=== PATIENT | female | born 1955 | race Caucasian/White ===

== ENCOUNTER → 2018-04-12 | Outpatient (CLI) | payer MEDICARE, BC ==
[~2018-04-12] MED LIST: ATEN50; LEVO-T112 MCG
== END ==
LOC: LAB 12:02 → LAB SHORT 12:02
DX: I83.028 Varicose veins of left lower extremity with ulcer other part of lower leg (principal); I87.2 Venous insufficiency (chronic) (peripheral); L90.5 Scar conditions and fibrosis of skin; D22.39 Melanocytic nevi of other parts of face; S50.912A Unspecified superficial injury of left forearm, initial encounter; I83.93 Asymptomatic varicose veins of bilateral lower extremities
CPT/HCPCS: 87070; 87075; 87186; 87205

== ENCOUNTER 2018-05-31 15:24 | Inpatient (IN) | payer MEDICARE, BC ==
[~2018-05-31] VITALS: Ht 172.7 cm; Wt 130.8 kg
[~2018-05-31 15:24] MED LIST changes: -LEVO-T112 MCG; +LEVO-T112 MCG PO
[2018-05-31 16:32] LABS: Alanine Aminotransfer (ALT/SGP 29 U/L (12-78); Albumin, Blood 3.6 g/dL (3.4-5.0); Albumin/Globulin Ratio 1.2 (0.8-1.8); Alk Phos 75 U/L (50-136); Anion Gap 6 mmol/L (6-16); Aspartate Aminotrans (AST/SGOT 31 U/L (12-37); Bilirubin, Total 0.3 mg/dL (0.1-1.0); Blood Urea Nitrogen 9 mg/dL (8-24); Bun/Creatinine Ratio 9.3 (12.0-20.0); CO2, Blood 29 mmol/L (21-32); Calcium, Blood 8.5 mg/dL (8.5-10.1); Chloride, Blood 105 mmol/L (98-108); Creatinine, Blood 0.96 mg/dL (0.40-1.00); Globulin, Blood 3.1 g/dL (2.2-4.0); Glomerular Filtration Rate >60 (60-); Glucose, Blood 97 mg/dL (70-99); Potassium, Blood 3.9 mmol/L (3.5-5.5); Sodium, Blood 140 mmol/L (136-145); Total Protein, Blood 6.7 g/dL (6.4-8.2); Troponin I 0.062 ng/mL (0.000-0.040)
[2018-05-31 18:02] LABS: Mean Platelet Volume 12.9 fL (9.1-12.4); Platelet Count 148 K/mm3 (150-400)
[2018-05-31 18:26] LABS: International Normalized Ratio 0.97
[2018-05-31] MEDS ORDERED: LATANOPROST2.5 ML BOTHEYES (18:45)
[2018-05-31] MEDS ORDERED: [UNRECOGNIZED DRUG - CODE] PO (18:47)
[2018-05-31 19:29] LABS: LDL/HDL RATIO 1.7; Very Low Density Lipoprot Chol 47 mg/dL (6-32)
[2018-05-31 19:30] LABS: CHOL/HDL RATIO 4.1; Cholesterol 138 mg/dL (50-200); HDL Cholesterol 34 mg/dL (>39); Low Density Lipoprotein Chol 57 mg/dL (0-110); Triglycerides 237 mg/dL (30-160)
[2018-05-31 20:24] LABS: Hematocrit 38.6 % (33.0-51.0); Hemoglobin 12.7 g/dL (11.5-16.0); Mean Corpuscular HGB 32.7 pg (26.0-34.0); Mean Corpuscular HGB Conc 32.9 g/dL (31.5-36.5); Mean Corpuscular Volume 100 fL (80-100); Platelet Count 135 K/mm3 (150-400); RDW Coefficient Variation 11.8 % (11.7-14.2); RDW Standard Deviation 43.2 fL (35.1-46.3); Red Blood Cell Count 3.88 M/mm3 (3.80-5.20); White Blood Cell Count 7.01 K/mm3 (4.00-11.30)
[2018-05-31] MEDS ORDERED: ASPI81CH PO (20:35)
[2018-06-01 04:54] LABS: Hematocrit 37.3 % (33.0-51.0); Hemoglobin 12.5 g/dL (11.5-16.0); Mean Corpuscular HGB 33.2 pg (26.0-34.0); Mean Corpuscular HGB Conc 33.5 g/dL (31.5-36.5); Mean Corpuscular Volume 99 fL (80-100); Mean Platelet Volume 12.1 fL (9.1-12.4); Platelet Count 148 K/mm3 (150-400); RDW Coefficient Variation 11.9 % (11.7-14.2); RDW Standard Deviation 43.1 fL (35.1-46.3); Red Blood Cell Count 3.77 M/mm3 (3.80-5.20); White Blood Cell Count 6.72 K/mm3 (4.00-11.30)
[2018-06-01 05:19] LABS: Anion Gap 6 mmol/L (6-16); Blood Urea Nitrogen 8 mg/dL (8-24); Bun/Creatinine Ratio 8.9 (12.0-20.0); CO2, Blood 27 mmol/L (21-32); Chloride, Blood 110 mmol/L (98-108); Glomerular Filtration Rate >60 (60-); Glucose, Blood 96 mg/dL (70-99); Potassium, Blood 4.1 mmol/L (3.5-5.5); Sodium, Blood 143 mmol/L (136-145)
[2018-06-01 05:20] LABS: Troponin I 0.493 ng/mL (0.000-0.040)
[2018-06-02 03:40] LABS: BASOPHILS ABSOLUTE AUTO 0.01 K/mm3 (0.00-0.23); BASOPHILS PERCENT AUTO 0 % (0-2); EOSINOPHILS PERCENT AUTO 4 % (0-6); Hematocrit 40.7 % (33.0-51.0); Hemoglobin 13.4 g/dL (11.5-16.0); IMMATURE GRAN ABSOLUTE AUTO 0.02 K/mm3 (0.00-0.10); IMMATURE GRAN PERCENT AUTO 0 % (0-1); LYMPHOCYTES ABSOLUTE AUTO 2.11 K/mm3 (0.84-5.20); LYMPHOCYTES PERCENT AUTO 26 % (21-46); MONOCYTES ABSOLUTE AUTO 0.66 K/mm3 (0.16-1.47); MONOCYTES PERCENT AUTO 8 % (4-13); Mean Corpuscular HGB 32.9 pg (26.0-34.0); Mean Corpuscular HGB Conc 32.9 g/dL (31.5-36.5); Mean Corpuscular Volume 100 fL (80-100); Mean Platelet Volume 11.6 fL (9.1-12.4); NEUTROPHILS ABSOLUTE AUTO 4.98 K/mm3 (1.96-9.15); NEUTROPHILS PERCENT AUTO 62 % (41-73); Platelet Count 150 K/mm3 (150-400); RDW Coefficient Variation 12.2 % (11.7-14.2); RDW Standard Deviation 45.1 fL (35.1-46.3); Red Blood Cell Count 4.07 M/mm3 (3.80-5.20); White Blood Cell Count 8.08 K/mm3 (4.00-11.30)
[2018-06-02] MEDS ORDERED: ATOR40TA PO (10:01)
[2018-06-02] MEDS ORDERED: CLOP75 PO (10:01)
[2018-06-02] MEDS ORDERED: METO50 PO (10:02)
[2018-06-02] MEDS ORDERED: NITR.4SL SL (10:03)
== END 2018-06-02 10:55 | disposition home or self-care (01) | DRG 247 ==
LOC: ER 15:24 → PCU 18:41
PROVIDERS: Emergency Medicine; Family Medicine; Nurse Practitioner Acute Care
PROC: 4A023N7 Measurement of Cardiac Sampling and Pressure, Left Heart, Percutaneous Approach (ICD-10-PCS; principal; 2018-06-01)
PROC: 027034Z Dilation of Coronary Artery, One Artery with Drug-eluting Intraluminal Device, Percutaneous Approach (ICD-10-PCS; 2018-06-01)
PROC: B211YZZ Fluoroscopy of Multiple Coronary Arteries using Other Contrast (ICD-10-PCS; 2018-06-01)
DX: I21.4 Non-ST elevation (NSTEMI) myocardial infarction (principal); Z68.41 Body mass index [BMI] 40.0-44.9, adult; L97.321 Non-pressure chronic ulcer of left ankle limited to breakdown of skin; I10 Essential (primary) hypertension; D69.6 Thrombocytopenia, unspecified; E03.9 Hypothyroidism, unspecified; I16.0 Hypertensive urgency; E66.01 Morbid (severe) obesity due to excess calories; B95.62 Methicillin resistant Staphylococcus aureus infection as the cause of diseases classified elsewhere
CPT/HCPCS: 36415; 71046; 80048; 80053; 80061; 83735; 83880; 84484; 85025; 85027; 85049; 85347; 85610; 85730; 92978; 93005; 93010; 93306; 93458; 96361; 96374; 99152; 99153; 99285-25; C1725; C1753; C1769; C1874; C1894; C9600; J1644; J2250; J3010; J7030; Q9967

== ENCOUNTER 2019-06-18 07:07 | Day surgery (SDC) | payer MEDICARE, BC ==
[~2019-06-18] VITALS: Ht 175.3 cm; Wt 117.2 kg
[~2019-06-18 07:07] MED LIST changes: +ACIDOPHILUS LA1 EACH PO; +ASPI81CH PO; +ATOR40TA PO; +CALCIUM + VITA1 EAC1 PO; +CLON.1 PO; +CLOP75 PO; +DAILY VALUE1 EACH PO; +LATANOPROST2.5 ML BOTHEYES; +LEVSOD112 PO; +Loratadine10 MG PO; +METO50 PO; +NITR.4SL SL; +Natural Vita200 UNIT PO; +VITAMIN C500 MG PO; +VITAMIN D325 GM PO; +Zantac150 MG PO; +[UNRECOGNIZED DRUG - CODE] PO
== END 2019-06-18 09:30 | disposition home or self-care (01) ==
LOC: ORSCSDS 07:07
PROVIDERS: Internal Medicine Gastroenterology
PROC: 0DBL8ZX Excision of Transverse Colon, Via Natural or Artificial Opening Endoscopic, Diagnostic (ICD-10-PCS; principal; 2019-06-18 08:30)
PROC: 0DBK8ZX Excision of Ascending Colon, Via Natural or Artificial Opening Endoscopic, Diagnostic (ICD-10-PCS; principal; 2019-06-18 08:30)
DX: Z12.11 Encounter for screening for malignant neoplasm of colon (principal); D12.2 Benign neoplasm of ascending colon; D12.3 Benign neoplasm of transverse colon; K57.30 Diverticulosis of large intestine without perforation or abscess without bleeding; K64.1 Second degree hemorrhoids; I10 Essential (primary) hypertension; E03.9 Hypothyroidism, unspecified; I25.10 Atherosclerotic heart disease of native coronary artery without angina pectoris; I25.2 Old myocardial infarction; Z79.899 Other long term (current) drug therapy
CPT/HCPCS: 88305; J0461; J2405; J2704; J7120

== ENCOUNTER 2020-09-01 07:47 | Observation (INO) | payer MEDICARE, BC ==
[~2020-09-01] VITALS: Ht 172.7 cm; Wt 120.0 kg
[~2020-09-01 07:47] MED LIST changes: +Aspir 8181 MG PO
--- NOTE | 2020-09-01 11:10 | NUR ---
09/01/20 1110 Ashley Harvey EPINEPHRINE SOAKED PLEDGETS PLACED BY DR. BILL
--- NOTE | 2020-09-01 11:43 | NUR ---
09/01/20 1143 HELEN RESTREPO PT DENIES PAIN OR NAUSEA AT THIS TIME. UPPER LIP GAUZE IN PLACE W/SCANT RED BLOOD. PT NEEDS ENCOURAGEMENT TO DEEP BREATHE AND REQUIRES O2 VIA NON-REBREATHER AT 5L TO MAINTAIN O2 SATS >90%
--- NOTE | 2020-09-01 12:24 | NUR ---
09/01/20 1224 Karen Hall PT INTO RECLINER WITHOUT DIFFICULTY. PT DENIES PAIN AND NAUSEA IN SDU. DC INSTRUCTIONS REVIEWS. SCANT RED BLOOD ON DRESSING. MUSTAHCE DRESSING APPLIED AND CLEAN GAUZE PROVIDED FOR DISCHARGE. PT TOLERATING FLUIDS WELL.
--- NOTE | 2020-09-01 14:56 | NUR ---
PT ARRIVED VIA GURNEY AWAKE AND ORIENTED ACCOMPANIED BY RHONDA MAYES RN FROM [facility]. RECEIVED REPORT AND ASSUMED CARE FOR HUGO. PT COUGHING UP DARK RED SPUTUM IN MODERATE AMOUNTS, VSS, CHANGED DRESSING TO NOSE AND REPLACED CLAMP. WILL READY PT TO BE TAKIEN BACK TO OR BY DR BILL.
--- NOTE | 2020-09-01 15:38 | NUR ---
SPOKE TO CASSY VERGARA RN ABOUT [facility]WEST FINDINGS.
[2020-09-01 15:46] LABS: Hematocrit 37.7 % (33.0-51.0); Hemoglobin 12.5 g/dL (11.5-16.0)
--- NOTE | 2020-09-01 18:53 | NUR ---
ARRIVE FROM PACU AT 1810 PT ARRIVED FROM PACU A0X4. PT DENEIS CP/SOB. REPORTS MILD S/T DENIES PAIN.PT DENIES NAUSEA AND DENIES VOMITING. LUNG SOUNDS ARE CLEAR BUT DIMINISHED ENC DEEP BREATHING EXERCISE AND USE OF I/S. BRUISE PRESENT ON L UPPER CHEST, PT STS SHE HAD IT FOR A WEEK. VSS. LR FLUIDS ON L WRIST 18G IV PRESENT. ADRIAN INTACT, WITH LIGHT YELLOW URINE. PAS IN PLACED. CALL LIGHT W/IN REACH.
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
[2020-09-01 20:50] LABS: Hematocrit 32.6 % (33.0-51.0); Hemoglobin 10.8 g/dL (11.5-16.0)
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
[2020-09-02 04:21] LABS: BASOPHILS ABSOLUTE AUTO 0.01 K/mm3 (0.00-0.23); BASOPHILS PERCENT AUTO 0 % (0-2); EOSINOPHILS PERCENT AUTO 0 % (0-6); Hematocrit 30.4 % (33.0-51.0); IMMATURE GRAN ABSOLUTE AUTO 0.07 K/mm3 (0.00-0.10); IMMATURE GRAN PERCENT AUTO 1 % (0-1); LYMPHOCYTES ABSOLUTE AUTO 1.36 K/mm3 (0.84-5.20); LYMPHOCYTES PERCENT AUTO 11 % (21-46); MONOCYTES ABSOLUTE AUTO 0.68 K/mm3 (0.16-1.47); MONOCYTES PERCENT AUTO 6 % (4-13); Mean Corpuscular HGB Conc 32.9 g/dL (31.5-36.5); Mean Corpuscular Volume 100 fL (80-100); NEUTROPHILS ABSOLUTE AUTO 10.09 K/mm3 (1.96-9.15); NEUTROPHILS PERCENT AUTO 83 % (41-73); Platelet Count 187 K/mm3 (150-400); RDW Coefficient Variation 11.8 % (11.7-14.2); RDW Standard Deviation 42.6 fL (35.1-46.3); Red Blood Cell Count 3.03 M/mm3 (3.80-5.20); White Blood Cell Count 12.21 K/mm3 (4.00-11.30)
--- NOTE | 2020-09-02 06:01 | NUR ---
SHIFT SUMMARY: ELVIN IS A&OX4. VSS. SHE DID HAVE AN EPISODE OF DIZZINESS/LIGHTHEADEDNESS WHEN SHE SAT UP AT THE SIDE OF THE BED THIS AM. SHE WAS ASSISTED BACK TO BED BY STAFF AND REPORTED FEELING BETTER AFTER LYING DOWN FOR A COUPLE OF MINUTES. HER HEMOGLOBIN IS 10 THIS AM FROM 10.8 YESTERDAY EVENING. THE NASAL PACKING TO HER RIGHT NARE IS MAINTAINING HEMOSTASIS. SHE IS TOLERATING PO INTAKE WELL. ADRIAN DRAINING CLEAR, YELLOW URINE. IV TO LEFT WRIST PATENT. SHE USES HER CALL LIGHT APPROPRIATELY. SHE IS LYING IN BED WITH HER CALL LIGHT IN REACH. WILL REPORT TO DAY SHIFT RN.
[2020-09-02] MEDS ORDERED: AMOCLA875 PO (11:57)
--- NOTE | 2020-09-02 14:10 | NUR ---
DISCHARGE NOTE: PATIENT WAS EDUCATED ON DISCHARGE INSTRUCTIONS. SHE VERBALIZED UNDERSTANDING AND HAD NO FURTHER QUESTIONS. SHE IS ALERT AND ORIENTED X4. VITALS ARE WNL AND ON RA. SHE HAS HER PERSCRIPTION FOR ANTIBIOTICS. SHE IS DRESSED AND HAS HER BELONGINGS TOGETHER. HER FRIEND WILL COME AND PICK HER UP. SHE WILL BE WHEELCHAIRED DOWN TO THE CAR. SHE HAS BEEN A PLEASURE TO WORK WITH. SHE WAS ABLE TO VOID AFTER HAVING HER ADRIAN TAKEN OUT. IV WAS TAKEN OUT AND WNL.
[2020-09-02] MEDS ORDERED: ATOR80 PO (23:39)
[2020-09-02] MEDS ORDERED: ASPI81CH PO (23:39)
[2020-09-02] MEDS ORDERED: AMLO5 PO (23:40)
[2020-09-03] MEDS ORDERED: Bactrim Ds Tab1 EACH PO (01:31)
== END 2020-09-02 14:24 | disposition home or self-care (01) ==
LOC: ORSCSDS 07:47 → MEDS 13:55 → ORSCSDS 13:55 → SURS 17:49
PROVIDERS: Internal Medicine; ADMIT Otolaryngology
DX: J32.8 Other chronic sinusitis (principal); R04.0 Epistaxis; I16.0 Hypertensive urgency; I95.9 Hypotension, unspecified; I10 Essential (primary) hypertension; I25.10 Atherosclerotic heart disease of native coronary artery without angina pectoris; I25.2 Old myocardial infarction; E03.9 Hypothyroidism, unspecified; G25.0 Essential tremor; M19.90 Unspecified osteoarthritis, unspecified site; E78.5 Hyperlipidemia, unspecified; Z23 Encounter for immunization; Z79.82 Long term (current) use of aspirin; Z79.899 Other long term (current) drug therapy; Z88.0 Allergy status to penicillin; Z88.1 Allergy status to other antibiotic agents; Z88.8 Allergy status to other drugs, medicaments and biological substances; Z95.5 Presence of coronary angioplasty implant and graft
CPT/HCPCS: 36415; 85014; 85018; 85025; A9270-GY; J0171; J0330; J1100; J2250; J2405; J2704; J3010; J7120

== ENCOUNTER 2020-09-02 23:02 | Emergency (ER) | payer MEDICARE, BC ==
[~2020-09-02] VITALS: Ht 172.7 cm; Wt 77.1 kg
[~2020-09-02 23:02] MED LIST changes: +AMOCLA875 PO
[2020-09-02 23:24] LABS: BASOPHILS ABSOLUTE AUTO 0.02 K/mm3 (0.00-0.23); BASOPHILS PERCENT AUTO 0 % (0-2); EOSINOPHILS ABSOLUTE AUTO 0.01 K/mm3 (0.00-0.68); EOSINOPHILS PERCENT AUTO 0 % (0-6); Hematocrit 28.2 % (33.0-51.0); Hemoglobin 9.2 g/dL (11.5-16.0); IMMATURE GRAN ABSOLUTE AUTO 0.15 K/mm3 (0.00-0.10); IMMATURE GRAN PERCENT AUTO 1 % (0-1); LYMPHOCYTES ABSOLUTE AUTO 2.22 K/mm3 (0.84-5.20); LYMPHOCYTES PERCENT AUTO 13 % (21-46); MONOCYTES ABSOLUTE AUTO 1.88 K/mm3 (0.16-1.47); MONOCYTES PERCENT AUTO 11 % (4-13); Mean Corpuscular HGB 33.1 pg (26.0-34.0); Mean Corpuscular HGB Conc 32.6 g/dL (31.5-36.5); Mean Corpuscular Volume 101 fL (80-100); Mean Platelet Volume 11.7 fL (9.1-12.4); NEUTROPHILS ABSOLUTE AUTO 12.88 K/mm3 (1.96-9.15); NEUTROPHILS PERCENT AUTO 75 % (41-73); Platelet Count 168 K/mm3 (150-400); RDW Coefficient Variation 11.9 % (11.7-14.2); RDW Standard Deviation 43.8 fL (35.1-46.3); Red Blood Cell Count 2.78 M/mm3 (3.80-5.20); White Blood Cell Count 17.16 K/mm3 (4.00-11.30)
[2020-09-02] MEDS ORDERED: ASPI81CH PO (23:39)
[2020-09-02] MEDS ORDERED: ATOR80 PO (23:39)
[2020-09-02] MEDS ORDERED: AMLO5 PO (23:40)
[2020-09-02 23:42] LABS: Alanine Aminotransfer (ALT/SGP 19 U/L (12-78); Albumin, Blood 3.1 g/dL (3.4-5.0); Albumin/Globulin Ratio 1.1 (0.8-1.8); Alk Phos 50 U/L (50-136); Anion Gap 6 mmol/L (6-16); Aspartate Aminotrans (AST/SGOT 29 U/L (12-37); Bilirubin, Total 0.4 mg/dL (0.1-1.0); Blood Urea Nitrogen 37 mg/dL (8-24); CO2, Blood 28 mmol/L (21-32); Calcium, Blood 8.6 mg/dL (8.5-10.1); Chloride, Blood 103 mmol/L (98-108); Creatinine, Blood 0.88 mg/dL (0.40-1.00); Globulin, Blood 2.8 g/dL (2.2-4.0); Glomerular Filtration Rate >60 (60-); Glucose, Blood 136 mg/dL (70-99); Potassium, Blood 4.3 mmol/L (3.5-5.5); Sodium, Blood 137 mmol/L (136-145); Total Protein, Blood 5.9 g/dL (6.4-8.2); Troponin I 0.034 ng/mL (0.000-0.040)
[2020-09-03 00:57] LABS: Source, Urine Clean Catch
[2020-09-03 01:02] LABS: Bilirubin, Urine Neg (Neg); Blood, Urine 1+ (Neg); Glucose Qualitative, Urine Neg (Neg); Ketones, Urine Neg (Neg); Leukocyte Esterase, Urine 3+ (Neg); Nitrite, Urine Neg (Neg); Protein, Urine Neg (Neg); Urobilinogen, Urine NORM (Normal); pH, Urine 6.5 (5.0-8.0)
[2020-09-03 01:06] LABS: Appearance, Urine Hazy (Clear); Color, Urine Yellow (P-Yellow)
[2020-09-03 01:17] LABS: Bacteria Many /hpf; Red Blood Cells, Urine Rare /hpf (0-2); Squamous Epithelial Cells Not Seen /hpf (Few); White Blood Cells, Urine TNTC /hpf (0-5)
[2020-09-03] MEDS ORDERED: Bactrim Ds Tab1 EACH PO (01:31)
== END 2020-09-03 03:46 | disposition home or self-care (01) ==
LOC: ER 23:02
PROVIDERS: Emergency Medicine
DX: N39.0 Urinary tract infection, site not specified (principal); I10 Essential (primary) hypertension; I25.10 Atherosclerotic heart disease of native coronary artery without angina pectoris; Z88.0 Allergy status to penicillin; Z88.1 Allergy status to other antibiotic agents; Z88.8 Allergy status to other drugs, medicaments and biological substances; Z95.5 Presence of coronary angioplasty implant and graft; Z79.899 Other long term (current) drug therapy
CPT/HCPCS: 80053; 81001; 84484; 85025; 87077; 87086; 87186; 93005; 93010; 96360; 99284-25; A9270-GY; J7030

== ENCOUNTER → 2021-10-03 | Outpatient (CLI) | payer MEDICARE, BC ==
[~2021-10-03] MED LIST changes: +AMLO5 PO; +ATOR80 PO; +Bactrim Ds Tab1 EACH PO
== END | disposition home or self-care (01) ==
LOC: LAB SHORT 15:24
DX: N39.0 Urinary tract infection, site not specified (principal)
CPT/HCPCS: 87077; 87086; 87186

== ENCOUNTER → 2022-01-01 | Outpatient (CLI) | payer MEDICARE, BC | END | disposition home or self-care (01) | LOC: LAB 14:41 → LAB SHORT 14:41 | DX: N39.0 Urinary tract infection, site not specified (principal) | CPT/HCPCS: 87077; 87086; 87186 ==

== ENCOUNTER → 2022-07-18 | Outpatient (CLI) | payer MEDICARE, BC | LOC: LAB 15:06 → LAB SHORT 15:06 | DX: R30.0 Dysuria (principal) | CPT/HCPCS: 87086 ==

== ENCOUNTER 2022-10-19 07:46 | Day surgery (SDC) | payer MEDICARE, BC | END 2022-10-19 23:02 | disposition home or self-care (01) | LOC: CT 07:46 | DX: R93.1 Abnormal findings on diagnostic imaging of heart and coronary circulation (principal); I25.10 Atherosclerotic heart disease of native coronary artery without angina pectoris; I51.89 Other ill-defined heart diseases; I10 Essential (primary) hypertension; E78.5 Hyperlipidemia, unspecified; E03.9 Hypothyroidism, unspecified; R94.31 Abnormal electrocardiogram [ECG] [EKG]; R60.0 Localized edema; R53.83 Other fatigue; I27.20 Pulmonary hypertension, unspecified; J90 Pleural effusion, not elsewhere classified | CPT/HCPCS: 75574; Q9967 ==

== ENCOUNTER → 2023-07-14 | Outpatient (CLI) | payer MEDICARE, BC | LOC: LAB 15:08 → LAB SHORT 15:08 | DX: R30.0 Dysuria (principal) | CPT/HCPCS: 87086 ==

== ENCOUNTER 2023-09-07 07:03 | Day surgery (SDC) | payer MEDICARE, BC ==
[~2023-09-07] VITALS: Ht 172.7 cm; Wt 116.4 kg
[~2023-09-07 07:03] MED LIST changes: +ACET325 PO; +IRBE75 PO; +METO100 PO; +VITAMIN D310 MC4 PO; +XALATAN2.5 ML
[2023-09-07] MEDS ORDERED: MELO7.5 (07:43)
[2023-09-07] MEDS ORDERED: AMILORIDE HCL5 M7 PO (07:44)
--- NOTE | 2023-09-07 07:50 | NUR ---
09/07/23 0750 Roxy Bell PROPARACAINE IN AT 0743 PLEGETT IN AT 0745 CALL LIGHT AT BEDSIDE
[2023-09-07 08:53] VITALS: BP 162/76
--- NOTE | 2023-09-07 09:12 | NUR ---
09/07/23 0912 Idalmis Palacios PT STATES PAIN 2/10, TOLERABLE/ "IRRITATED PAIN". PT STATES WILL TAKE OVER THE COUNTER PAIN MEDICATION AT HOME. VSS.
== END 2023-09-07 09:12 | disposition home or self-care (01) ==
LOC: ORSCSDS 07:03
PROVIDERS: Student in an Organized Health Care Education/Training Program
PROC: 08RK3JZ Replacement of Left Lens with Synthetic Substitute, Percutaneous Approach (ICD-10-PCS; principal; 2023-09-07 08:30)
DX: H25.12 Age-related nuclear cataract, left eye (principal); I10 Essential (primary) hypertension; E03.9 Hypothyroidism, unspecified; I25.2 Old myocardial infarction; Z79.899 Other long term (current) drug therapy
CPT/HCPCS: J2250; J3010; J7040; V2632

== ENCOUNTER 2023-09-18 11:06 | Day surgery (SDC) | payer MEDICARE, BC ==
[~2023-09-18] VITALS: Ht 172.7 cm; Wt 114.9 kg
[~2023-09-18 11:06] MED LIST changes: +AMILORIDE HCL5 M7 PO; +MELO7.5
[2023-09-18 12:54] VITALS: BP 168/66
== END 2023-09-18 13:15 | disposition home or self-care (01) ==
LOC: ORSCSDS 11:06
PROVIDERS: Student in an Organized Health Care Education/Training Program
PROC: 08RJ3JZ Replacement of Right Lens with Synthetic Substitute, Percutaneous Approach (ICD-10-PCS; principal; 2023-09-18 13:00)
DX: H25.11 Age-related nuclear cataract, right eye (principal); Z96.1 Presence of intraocular lens; I25.2 Old myocardial infarction; I10 Essential (primary) hypertension; I25.10 Atherosclerotic heart disease of native coronary artery without angina pectoris; Z79.899 Other long term (current) drug therapy
CPT/HCPCS: J2250; J3010; J7040; V2632

== ENCOUNTER → 2023-10-24 | Outpatient (CLI) | payer MEDICARE, BC | END | disposition home or self-care (01) | LOC: LAB 15:22 → LAB SHORT 15:22 | DX: N39.0 Urinary tract infection, site not specified (principal) | CPT/HCPCS: 87077; 87086; 87186 ==

== ENCOUNTER 2024-05-04 09:32 | Emergency (ER) | payer MEDICARE, BC ==
[~2024-05-04] VITALS: Ht 172.7 cm; Wt 114.3 kg
[2024-05-04 09:55] LABS: Source, Urine Clean Catch
[2024-05-04 09:59] LABS: BASOPHILS ABSOLUTE AUTO 0.02 K/mm3 (0.00-0.23); BASOPHILS PERCENT AUTO 0 % (0-2); EOSINOPHILS PERCENT AUTO 0 % (0-6); Hematocrit 40.3 % (33.0-51.0); Hemoglobin 13.7 g/dL (11.5-16.0); IMMATURE GRAN ABSOLUTE AUTO 0.12 K/mm3 (0.00-0.10); IMMATURE GRAN PERCENT AUTO 2 % (0-1); LYMPHOCYTES ABSOLUTE AUTO 0.36 K/mm3 (0.84-5.20); LYMPHOCYTES PERCENT AUTO 5 % (21-46); MONOCYTES ABSOLUTE AUTO 1.45 K/mm3 (0.16-1.47); MONOCYTES PERCENT AUTO 22 % (4-13); Mean Corpuscular HGB 32.7 pg (26.0-34.0); Mean Corpuscular Volume 96 fL (80-100); Mean Platelet Volume 10.4 fL (9.1-12.4); NEUTROPHILS ABSOLUTE AUTO 4.66 K/mm3 (1.96-9.15); NEUTROPHILS PERCENT AUTO 71 % (41-73); Platelet Count 189 K/mm3 (150-400); RDW Coefficient Variation 11.7 % (11.7-14.2); Red Blood Cell Count 4.19 M/mm3 (3.80-5.20); White Blood Cell Count 6.61 K/mm3 (4.00-11.30)
[2024-05-04 10:00] LABS: Appearance, Urine Clear (Clear); Bilirubin, Urine Neg (Neg); Blood, Urine 1+ (Neg); Color, Urine Yellow (P-Yellow); Glucose Qualitative, Urine Neg (Neg); Ketones, Urine Neg (Neg); Leukocyte Esterase, Urine Neg (Neg); Nitrite, Urine Neg (Neg); Protein, Urine 1+ (Neg); Specific Gravity, Urine 1.015 (1.003-1.022); Urobilinogen, Urine NORM (Normal)
[2024-05-04 10:08] LABS: Bacteria Rare /hpf; Mucus Light (0-Heavy); Squamous Epithelial Cells Rare /hpf (Few); White Blood Cells, Urine Not Seen /hpf (0-5)
[2024-05-04] MEDS ORDERED: VANCOMYCIN HCL IV ONE (10:10)
[2024-05-04] MEDS ORDERED: NS IV ONE (10:10)
[2024-05-04] MEDS ORDERED: NS 1,000 ML IV SCH (10:15)
[2024-05-04 10:16] LABS: Albumin, Blood 3.3 g/dL (3.4-5.0); Albumin/Globulin Ratio 0.8 (0.8-1.8); Bilirubin, Total 0.6 mg/dL (0.1-1.0); Bun/Creatinine Ratio 8.6 (12.0-20.0); Calcium, Blood 8.9 mg/dL (8.5-10.1); Creatinine, Blood 0.69 mg/dL (0.40-1.00); Potassium, Blood 3.6 mmol/L (3.5-5.5); Total Protein, Blood 7.3 g/dL (6.4-8.2)
[2024-05-04 10:18] LABS: BASOPHILS PERCENT MAN 0 % (0-2); EOSINOPHILS PERCENT MAN 0 % (0-6); LYMPHOCYTES ABSOLUTE MAN 0.33 K/mm3 (0.84-5.20); LYMPHOCYTES PERCENT MAN 5 % (21-46); MONOCYTES ABSOLUTE MAN 1.71 K/mm3 (0.16-1.47); MONOCYTES PERCENT MAN 26 % (4-13); NEUTROPHILS ABSOLUTE MAN 4.56 K/mm3 (1.96-9.15); SEG NEUTROPHILS PERCENT MAN 69 % (41-73); TOTAL CELLS COUNTED 100
[2024-05-04 10:35] LABS: Magnesium, Blood 1.7 mg/dL (1.6-2.4); Phosphorus, Blood 2.7 mg/dL (2.5-4.9)
[2024-05-04] MEDS ORDERED: Ondansetron HCl 2 MG / ML 2ML Vial IV ONE (10:35)
[2024-05-04 11:33] LABS: International Normalized Ratio 1.05; Prothrombin Time Results 11.2 Sec (9.7-11.5)
[2024-05-04 11:51] LABS: Influenza A, PCR NEGATIVE (NEGATIVE); Influenza B, PCR NEGATIVE (NEGATIVE); Resp Syncytial Virus, PCR NEGATIVE (NEGATIVE)
[2024-05-04 11:54] LABS: SARS-Cov-2 (COVID-19) PCR, MMC POSITIVE (NEGATIVE)
[2024-05-04 13:00] VITALS: BP 186/70
== END 2024-05-04 13:30 | disposition home or self-care (01) ==
LOC: ER 09:32
PROVIDERS: Emergency Medicine; Student in an Organized Health Care Education/Training Program
DX: U07.1 COVID-19 (principal); I10 Essential (primary) hypertension; M19.90 Unspecified osteoarthritis, unspecified site; I21.4 Non-ST elevation (NSTEMI) myocardial infarction; Z79.82 Long term (current) use of aspirin; Z79.899 Other long term (current) drug therapy; Z88.0 Allergy status to penicillin; Z88.1 Allergy status to other antibiotic agents; Z88.8 Allergy status to other drugs, medicaments and biological substances
CPT/HCPCS: 0241U; 36415; 71046; 80053; 81001; 83605; 83735; 84100; 84484; 85025; 85610; 85730; 87040; 93005; 93010; 96361; 96374; 99284-25; J2405; J7030

== ENCOUNTER → 2024-09-23 | Outpatient (CLI) | payer MEDICARE, BC | END | disposition home or self-care (01) | LOC: LAB SHORT 15:21 → LAB 15:21 | DX: N39.0 Urinary tract infection, site not specified (principal) | CPT/HCPCS: 87077; 87086; 87186 ==

== ENCOUNTER → 2025-06-25 | Outpatient (CLI) | payer MEDICARE, BC | LOC: LAB 11:39 → LAB SHORT 11:39 | DX: N39.0 Urinary tract infection, site not specified (principal) | CPT/HCPCS: 87077; 87086; 87186 ==

== ENCOUNTER 2025-09-01 11:58 | Inpatient (IN) | payer MEDICARE, BC ==
[~2025-09-01] VITALS: Ht 172.7 cm; Wt 88.0 kg
[2025-09-01] VITALS (15 sets, daily range): BP systolic 91–155; BP diastolic 37–64
[2025-09-01] MEDS ORDERED: Clindamycin 900mg in D5W 50ML 50 ML IV ONE (14:30)
[2025-09-01 14:37] LABS: BASOPHILS ABSOLUTE AUTO 0.05 K/mm3 (0.00-0.23); BASOPHILS PERCENT AUTO 0 % (0-2); EOSINOPHILS ABSOLUTE AUTO 0.01 K/mm3 (0.00-0.68); EOSINOPHILS PERCENT AUTO 0 % (0-6); Hematocrit 37.3 % (33.0-51.0); Hemoglobin 12.7 g/dL (11.5-16.0); IMMATURE GRAN ABSOLUTE AUTO 0.14 K/mm3 (0.00-0.10); IMMATURE GRAN PERCENT AUTO 1 % (0-1); LYMPHOCYTES ABSOLUTE AUTO 0.79 K/mm3 (0.84-5.20); LYMPHOCYTES PERCENT AUTO 4 % (21-46); MONOCYTES ABSOLUTE AUTO 2.02 K/mm3 (0.16-1.47); MONOCYTES PERCENT AUTO 9 % (4-13); Mean Corpuscular HGB Conc 34.0 g/dL (31.5-36.5); Mean Corpuscular Volume 100 fL (80-100); NEUTROPHILS ABSOLUTE AUTO 18.93 K/mm3 (1.96-9.15); NEUTROPHILS PERCENT AUTO 86 % (41-73); NRBC ABSOLUTE 0.00 K/mm3 (0.00-0.02); NRBC Auto 0.0 /100 WBC (0.0-0.2); Platelet Count 212 K/mm3 (150-400); RDW Coefficient Variation 12.8 % (11.7-14.2); RDW Standard Deviation 46.9 fL (35.1-46.3)
[2025-09-01] MEDS ORDERED: NS 1,000 ML IV SCH ×2 (14:50→17:25)
[2025-09-01] MEDS ORDERED: Ketorolac Tromethamine 30mg Vial IV ONE (15:00)
[2025-09-01 15:21] LABS: Alanine Aminotransfer (ALT/SGP 21.0 U/L (12-78); Albumin, Blood 3.4 g/dL (3.4-5.0); Albumin/Globulin Ratio 1.1 (0.8-1.8); Anion Gap 11.0 mmol/L (3-11); Aspartate Aminotrans (AST/SGOT 29.0 U/L (12-37); Bilirubin, Total 1.0 mg/dL (0.1-1.0); Blood Urea Nitrogen 11.0 mg/dL (8-24); CO2, Blood 24.0 mmol/L (21-32); Calcium, Blood 9.1 mg/dL (8.5-10.1); Chloride, Blood 104.0 mmol/L (98-108); Creatinine, Blood 0.81 mg/dL (0.40-1.00); Globulin, Blood 3.0 g/dL (2.2-4.0); Glucose, Blood 87.0 mg/dL (70-99); Potassium, Blood 4.5 mmol/L (3.5-5.5); Sodium, Blood 134.0 mmol/L (136-145); Total Protein, Blood 6.4 g/dL (6.4-8.2)
[2025-09-01] MEDS ORDERED: Ondansetron HCl 2 MG / ML 2ML Vial IV PRN (17:20)
[2025-09-01] MEDS ORDERED: FLU VACC TS2025(65UP)/MF59C/PF 45 MCG/0.5 ML SYRINGE IM SCH (17:25)
[2025-09-01] MEDS ORDERED: HYDROcodone 5-APAP 325 TAB PO PRN (17:30)
--- NOTE | 2025-09-01 20:57 | NUR ---
ARRIVAL TO ICU: PT ARRIVED TO ICU BED 02 FROM ER AT 1956. PT ALERT AND ORIENTED. ANSWERS QUESTIONS AND MAKES NEEDS KNOWN. PT SLID ACROSS TO ICU BED FROM ER [facility]. PT ON RA WITH SPO2 100%, DENIES SOB. ON CARDIAC MONTIOR SHOWING SR WITH HR 80'S. LEVOPHED INFUSING UPON ARRIVAL TO MAINTAIN MAP >65. DENIES CP. PT HAS VERY RED, HOT TO TOUCH LOWER RIGHT LEG EXTREMETY. NO C/O PAIN CURRENTLY. PHOTOS IN CHART. PT ALSO HAS SCATTERED SCABS AND BRUISES TO BILATERAL LEGS AND REDNESS ON COCCYX. PHOTOS IN CHART. PIV TO LAC AND RH BOTH INTACT. BELONGINGS IN PT CUBBY. TOLERATING PO INTAKE. BED LOCKED, CALL LIGHT IN REACH.
[2025-09-01] MEDS ORDERED: NS 250 ML IV PRN (23:40)
[2025-09-02] VITALS (81 sets, daily range): BP systolic 88–171; BP diastolic 24–74
[2025-09-02] MEDS ORDERED: Clindamycin 900mg in D5W 50ML 50 ML IV SCH
[2025-09-02 03:53] LABS: BASOPHILS ABSOLUTE AUTO 0.03 K/mm3 (0.00-0.23); BASOPHILS PERCENT AUTO 0 % (0-2); EOSINOPHILS ABSOLUTE AUTO 0.01 K/mm3 (0.00-0.68); EOSINOPHILS PERCENT AUTO 0 % (0-6); Hematocrit 31.5 % (33.0-51.0); Hemoglobin 10.9 g/dL (11.5-16.0); IMMATURE GRAN ABSOLUTE AUTO 0.13 K/mm3 (0.00-0.10); IMMATURE GRAN PERCENT AUTO 1 % (0-1); LYMPHOCYTES ABSOLUTE AUTO 1.41 K/mm3 (0.84-5.20); LYMPHOCYTES PERCENT AUTO 7 % (21-46); MONOCYTES ABSOLUTE AUTO 2.00 K/mm3 (0.16-1.47); MONOCYTES PERCENT AUTO 9 % (4-13); Mean Corpuscular HGB Conc 34.6 g/dL (31.5-36.5); Mean Corpuscular Volume 99 fL (80-100); NEUTROPHILS ABSOLUTE AUTO 17.67 K/mm3 (1.96-9.15); NEUTROPHILS PERCENT AUTO 83 % (41-73); NRBC ABSOLUTE 0.00 K/mm3 (0.00-0.02); NRBC Auto 0.0 /100 WBC (0.0-0.2); Platelet Count 188 K/mm3 (150-400); RDW Coefficient Variation 13.0 % (11.7-14.2); RDW Standard Deviation 46.9 fL (35.1-46.3)
--- NOTE | 2025-09-02 04:21 | NUR ---
UPDATE: REDNESS IN PT RIGHT LEG HAS NOW EXTENDED TO THE TOP OF HER TOES. OUTLINED WITH SKIN MARKER AND PROVIDER AWARE.
[2025-09-02 04:23] LABS: Alanine Aminotransfer (ALT/SGP 20.0 U/L (12-78); Albumin, Blood 2.6 g/dL (3.4-5.0); Albumin/Globulin Ratio 0.9 (0.8-1.8); Anion Gap 8.0 mmol/L (3-11); Aspartate Aminotrans (AST/SGOT 24.0 U/L (12-37); Bilirubin, Total 0.8 mg/dL (0.1-1.0); Blood Urea Nitrogen 15.0 mg/dL (8-24); CO2, Blood 25.0 mmol/L (21-32); Calcium, Blood 8.2 mg/dL (8.5-10.1); Chloride, Blood 106.0 mmol/L (98-108); Creatinine, Blood 0.94 mg/dL (0.40-1.00); Globulin, Blood 2.8 g/dL (2.2-4.0); Glucose, Blood 113.0 mg/dL (70-99); Potassium, Blood 4.4 mmol/L (3.5-5.5); Sodium, Blood 135.0 mmol/L (136-145); Total Protein, Blood 5.4 g/dL (6.4-8.2)
--- NOTE | 2025-09-02 05:43 | NUR ---
SHIFT SUMMARY: PT REMAINS ALERT AND ORIENTED, ABLE TO REST OFF AND ON T/O THE NIGHT. RIGHT LEG CONTINUES TO BE PAINFUL WITH MOVEMENT AND THROBBING WHILE AT REST. REDNESS OUTLINED WITH MARKER, DOES NOT APPEAR TO BE WORSENING SINCE LAST UPDATE. PRN PAIN MEDICATION GIVEN. ADDITIONAL PAIN MEDS ORDERED THIS AM. LEVOPHED REMAINS INFUSING TO MAINTAIN MAP >65. SEE FLOWSHEET FOR TITRATIONS. BENCH BORING MACHINE OPERATOR SHOWS SR WITH HR 50'S-90'S. ON RA WITH SPO2 >95%. PUREWICK TO SUCTION, CLOUDY, YELLOW URINE NOTED. AFEBRILE THIS SHIFT. PIV TO LAC PATENT. RH PIV PATENT. TOLERATING PO INTAKE. BED LOCKED, CALL LIGHT IN REACH.
[2025-09-02] MEDS ORDERED: FentaNYL Citrate 50 MCG/ML 2 ML Injection IV PRN (05:45)
[2025-09-02] MEDS ORDERED: Enoxaparin 40 MG/0.4 ML SYR SC SCH (09:00)
--- NOTE | 2025-09-02 16:49 | NUR ---
SHIFT SUMMARY PT AWAKE IN BED AT TIME OF BEDSIDE REPORT. PT A/OX4, ABLE TO MOVE ALL EXTREMITIES SPONTANEOUSLY, AND REPORTS PAIN WITHIN PROPORTION TO RLE. PT ABLE TO AMBULATE W/ ONE PERSON ASSIST. NSR ON MONITOR, CAP REFILL <3 SEC, MAPS MAINTAINED >65 W/ INTERMITTENT LEVOPHED INFUSION. LEVOPHED PRIMARY NEEDED DURING PATIENT'S SLEEP TIMES TO MAINTAIN BP GOAL. +1 EDEMA NOTED IN RLE. LUNGS SOUNDS CLEAR T/O MACK AND SATURATING >95% ON RA. BREATHS EVEN AND UNLABORED, PT DENIES SOB. ABD SOFT AND NONTENDER, BOWEL SOUNDS ACTIVE IN ALL QUADRANTS. PT CONTINENT OF BOWEL AND BLADDER, PUREWICK IN PLACE FOR PATIENT COMFORT NEEDED. REDNESS/BRUISING PRESENT IN RLE, SCATTERED BRUISING/SCABS PRESENT IN BLE. PHOTOS IN CHART. PT WAS ABLE TO WORK W/ PT/OT W/O DIFFICULTY AND WAS IN CHAIR FOR MOST OF THE DAY. GTTS: NS 100ML/HR, LEVOPHED 2 MCG/MIN
--- NOTE | 2025-09-02 19:40 | NUR ---
ASSUMED CARE AT 1900 PATIENT IS ALERT AND ORIENTED X4, IN RECLINER DURING SHIFT REPORT, SBA WITH CANE ACCORDING TO ARIC RN. REPORTS 5/10 PAIN IN RLE, INCREASED DISCOMFORT WHEN WALKING. SP02 95% ON RA, DENIES SOB. LS CLEAR THROUGHOUT. HR SR 70s, BP STABLE AT THIS TIME AND LEVOPHED IS ON SB. DENIES CP/PRESSURE. INCONTINENT AT TIMES, ATTENDS IN PLACE WHILE UP TO CHAIR AND PUREWICK WHILE SLEEPING. REPOSITIONS SELF. CALL LIGHT IN REACH. SEE SHIFT ASSESSMENT FOR MORE INFORMATION
[2025-09-02] MEDS ORDERED: Latanoprost 0.005% Opth Soln 2.5 ML BOTHEYES SCH (21:00)
[2025-09-03] VITALS (43 sets, daily range): BP systolic 98–174; BP diastolic 41–99
[2025-09-03 03:20] LABS: BASOPHILS ABSOLUTE AUTO 0.02 K/mm3 (0.00-0.23); BASOPHILS PERCENT AUTO 0 % (0-2); EOSINOPHILS ABSOLUTE AUTO 0.12 K/mm3 (0.00-0.68); EOSINOPHILS PERCENT AUTO 1 % (0-6); Hematocrit 28.8 % (33.0-51.0); Hemoglobin 10.0 g/dL (11.5-16.0); IMMATURE GRAN ABSOLUTE AUTO 0.05 K/mm3 (0.00-0.10); IMMATURE GRAN PERCENT AUTO 0 % (0-1); LYMPHOCYTES ABSOLUTE AUTO 1.13 K/mm3 (0.84-5.20); LYMPHOCYTES PERCENT AUTO 10 % (21-46); MONOCYTES ABSOLUTE AUTO 1.06 K/mm3 (0.16-1.47); MONOCYTES PERCENT AUTO 9 % (4-13); Mean Corpuscular HGB Conc 34.7 g/dL (31.5-36.5); Mean Corpuscular Volume 99 fL (80-100); NEUTROPHILS ABSOLUTE AUTO 9.55 K/mm3 (1.96-9.15); NEUTROPHILS PERCENT AUTO 80 % (41-73); NRBC ABSOLUTE 0.00 K/mm3 (0.00-0.02); NRBC Auto 0.0 /100 WBC (0.0-0.2); Platelet Count 147 K/mm3 (150-400); RDW Coefficient Variation 13.2 % (11.7-14.2); RDW Standard Deviation 47.4 fL (35.1-46.3)
[2025-09-03 03:41] LABS: Alanine Aminotransfer (ALT/SGP 18.0 U/L (12-78); Albumin, Blood 2.4 g/dL (3.4-5.0); Albumin/Globulin Ratio 0.9 (0.8-1.8); Anion Gap 6.0 mmol/L (3-11); Aspartate Aminotrans (AST/SGOT 21.0 U/L (12-37); Bilirubin, Total 0.6 mg/dL (0.1-1.0); Blood Urea Nitrogen 17.0 mg/dL (8-24); CO2, Blood 26.0 mmol/L (21-32); Calcium, Blood 8.6 mg/dL (8.5-10.1); Chloride, Blood 107.0 mmol/L (98-108); Creatinine, Blood 0.85 mg/dL (0.40-1.00); Globulin, Blood 2.7 g/dL (2.2-4.0); Glucose, Blood 93.0 mg/dL (70-99); Potassium, Blood 4.0 mmol/L (3.5-5.5); Sodium, Blood 135.0 mmol/L (136-145); Total Protein, Blood 5.1 g/dL (6.4-8.2)
--- NOTE | 2025-09-03 05:50 | NUR ---
SHIFT SUMMARY PATIENT REMAINS ALERT AND ORIENTED X4. SP02 100% ON RA, DENIES SOB. HR SB 40s-60s. PATIENT BP WOULD DROP WHILE SLEEPING, MAPS IN THE 50s, WHEN WOKEN UP BP WOULD IMMEDIATELY IMPROVE WITH MAPS IN THE 70s, STARTED ON 2MCG LEVOPHED WHILE SLEEPING AND TURNED OFF THIS AM WHEN PATIENT WOKE UP. HELD NIGHT DOSE OF METOPROLOL DUE TO LABILE BPs. MEDICATED FOR 5/10 RLE PAIN THROUGH THE NIGHT. CELLULITIS OUTLINED AND UNCHANGED. PUREWICK IN PLACE, 600 MLS URINE OUTPUT THIS SHIFT. PATIENT ABLE TO REPOSITION SELF IN BED. CALL LIGHT IN REACH
--- NOTE | 2025-09-03 07:16 | NUR ---
ASSUMED CARE OF PATIENT AT APPROXIMATELY 0700. REPORT RECEIVED FROM ROMA WYNN. PT AWAKE, INTERACTING c STAFF APPROPRIATELY DURING BEDSIDE REPORT. CONTINUOUS CARDIAC MONITORING IN PLACE, LEVOPHED CURRENTLY ON SB, MAP > 65. ON RA. PUREWICK IN PLACE. RLE c REDNESS, SWELLING, AND MARGINS VISUALIZED, NEW REDNESS AND SWELLING TO LLE. NS INFUSING AT 100 mL/HR. SEE SHIFT ASSESSMENT FOR FULL DETAILS.
--- NOTE | 2025-09-03 07:56 | NUR ---
LLE REDNESS AND SWELLING DR. ROBBINS AT BEDSIDE, NOTIFIED OF NEW REDNESS AND SWELLING TO LLE. NO CHANGES TO ORDERS. LLE ELEVATED AND HEEL PROTECTOR IN PLACE. WILL CONTINUE TO MONITOR.
--- NOTE | 2025-09-03 16:27 | NUR ---
SHIFT SUMMARY PT REMAINED ALERT AND ORIENTED X 4 T/O ENTIRETY OF SHIFT. ABLE TO FOLLOW COMMANDS, MAKE PURPOSEFUL MOVEMENTS, AND MAKE NEEDS KNOWN. AFEBRILE. REPORTS PAIN c PALPATION OF BLE'S. SBA FOR CORD MGMT. CONTINUOUS CARDIAC MONITORING IN PLACE SHOWS SB-SR c PAC'S. HYPERTENSIVE, HOSPITALIST AWARE. SEE NOTE REGARDING METOPROLOL. ON RA c O2 SATURATION > 92%. NO BM THIS SHIFT. TOLERATING PO INTAKE/MEDS/FLUIDS WELL. PUREWICK IN PLACE. BLE REDNESS AND SWELLING, MARGINS MARKED AND PROVIDER AWARE. LEGS ELEVATED. NS INFUSING AT 100 mL/HR. WILL CONTINUE TO MONITOR AND REPORT TO ONCOMING RN.
[2025-09-04] VITALS (14 sets, daily range): BP systolic 144–190; BP diastolic 48–95
[2025-09-04 03:34] LABS: BASOPHILS ABSOLUTE AUTO 0.02 K/mm3 (0.00-0.23); BASOPHILS PERCENT AUTO 0 % (0-2); EOSINOPHILS ABSOLUTE AUTO 0.25 K/mm3 (0.00-0.68); EOSINOPHILS PERCENT AUTO 3 % (0-6); Hematocrit 28.1 % (33.0-51.0); Hemoglobin 9.8 g/dL (11.5-16.0); IMMATURE GRAN ABSOLUTE AUTO 0.02 K/mm3 (0.00-0.10); IMMATURE GRAN PERCENT AUTO 0 % (0-1); LYMPHOCYTES ABSOLUTE AUTO 1.17 K/mm3 (0.84-5.20); LYMPHOCYTES PERCENT AUTO 15 % (21-46); MONOCYTES ABSOLUTE AUTO 0.67 K/mm3 (0.16-1.47); MONOCYTES PERCENT AUTO 9 % (4-13); Mean Corpuscular HGB Conc 34.9 g/dL (31.5-36.5); Mean Corpuscular Volume 98 fL (80-100); NEUTROPHILS ABSOLUTE AUTO 5.54 K/mm3 (1.96-9.15); NEUTROPHILS PERCENT AUTO 72 % (41-73); NRBC ABSOLUTE 0.00 K/mm3 (0.00-0.02); NRBC Auto 0.0 /100 WBC (0.0-0.2); Platelet Count 147 K/mm3 (150-400); RDW Coefficient Variation 12.9 % (11.7-14.2); RDW Standard Deviation 46.3 fL (35.1-46.3)
[2025-09-04 03:57] LABS: Alanine Aminotransfer (ALT/SGP 22.0 U/L (12-78); Albumin, Blood 2.3 g/dL (3.4-5.0); Albumin/Globulin Ratio 0.8 (0.8-1.8); Anion Gap 9.0 mmol/L (3-11); Aspartate Aminotrans (AST/SGOT 27.0 U/L (12-37); Bilirubin, Total 0.5 mg/dL (0.1-1.0); Blood Urea Nitrogen 13.0 mg/dL (8-24); CO2, Blood 23.0 mmol/L (21-32); Calcium, Blood 8.2 mg/dL (8.5-10.1); Chloride, Blood 107.0 mmol/L (98-108); Creatinine, Blood 0.78 mg/dL (0.40-1.00); Globulin, Blood 2.9 g/dL (2.2-4.0); Glucose, Blood 79.0 mg/dL (70-99); Potassium, Blood 4.2 mmol/L (3.5-5.5); Sodium, Blood 135.0 mmol/L (136-145); Total Protein, Blood 5.2 g/dL (6.4-8.2)
--- NOTE | 2025-09-04 05:57 | NUR ---
NO ACUTE EVENTS OVERNIGHT. PT HAD ONE COMPLAINT OF RIGHT LEG PAIN. PT MEDICATED PER NOV. PT'S HEART RATE INTERMITTENTLY DROPPED TO MID 40s BUT DID NOT SUSTAIN. PT WAS ASYMPTOMATIC. PURWICK IN PLACE. LEGS ELEVATED ON PILLOWS. BED LOCKED IN LOWEST POSITION. CALLS APPROPRIATELY. FOLLOWS COMMANDS.CALL LIGHT WITHIN REACH.
--- NOTE | 2025-09-04 15:42 | NUR ---
PALLIATIVE CONSULT RECEIVED, NO POLST ON FILE. PT HERE FOR CELLULITIS.
--- NOTE | 2025-09-04 17:04 | NUR ---
RN NOTE: PT TRANSFER FROM ICU TO ROOM 334, REPORT GIVEN FROM BLANE BRANDON.
--- NOTE | 2025-09-04 17:37 | NUR ---
SHIFT SUMMARY / TRANSFER TO [facility] PT TRANSFERED TO [facility] AT APPROXIMATELY 1610 VIA WHEELCHAIR WITH ALL PT BELONGINGS. REPORT GIVEN TO MEDICAL FLOOR RN. PT A&Ox4, CALLS AND COMMUNICATES NEEDS APPROPRIATELY. BP STABLE AFTER ADMINSTERING PO NORVASC. SINUS ONDINA 40-50's, ASYMPTOMATIC, DENIES CP/PRESSURE. SpO2> 92% RA, DENIES SOB. SBA IN ROOM. UP TO CHAIR. PT STATES CANNOT LAY FLAT PER PCP D/T CHRONIC BACK INJURY. MANAGED PAIN PER EMAR. NO OTHER EVENTS.
--- NOTE | 2025-09-04 18:39 | NUR ---
RN NOTE: NO ACUTE CHANGES AT THIS TIME AFTER PATIENT TRANSFER TO ROOM 334.
[2025-09-05 00:17] VITALS: BP 149/65
--- NOTE | 2025-09-05 03:43 | NUR ---
END OF SHIFT SUMMARY: AxOx4. FULL CODE. ADMITTED FOR CELLULITIS. PATIENT HAS A HX OF CELLULITIS. PATIENT IS ON TELE SINUS ONDINA @ 56 BPM. PATIENT IS A 1 PERSON SBA WITH A CANE. PATIENT TAKES MEDS WHOLE WITH FLUIDS. PATIENT IS ABLE TO MAKE NEEDS KNOWN. BED IN LOWEST POSITION. CALL LIGHT WITHIN REACH AND PATIENT HAS BEEN EDUCATED ON HOW TO USE. WILL REPORT TO ONCOMING NURSE.
[2025-09-05 03:48] VITALS: BP 154/65
[2025-09-05 05:51] LABS: BASOPHILS ABSOLUTE AUTO 0.02 K/mm3 (0.00-0.23); BASOPHILS PERCENT AUTO 0 % (0-2); EOSINOPHILS ABSOLUTE AUTO 0.42 K/mm3 (0.00-0.68); EOSINOPHILS PERCENT AUTO 6 % (0-6); Hematocrit 29.1 % (33.0-51.0); Hemoglobin 10.1 g/dL (11.5-16.0); IMMATURE GRAN ABSOLUTE AUTO 0.03 K/mm3 (0.00-0.10); IMMATURE GRAN PERCENT AUTO 0 % (0-1); LYMPHOCYTES ABSOLUTE AUTO 1.17 K/mm3 (0.84-5.20); LYMPHOCYTES PERCENT AUTO 16 % (21-46); MONOCYTES ABSOLUTE AUTO 0.71 K/mm3 (0.16-1.47); MONOCYTES PERCENT AUTO 10 % (4-13); Mean Corpuscular HGB Conc 34.7 g/dL (31.5-36.5); Mean Corpuscular Volume 98 fL (80-100); NEUTROPHILS ABSOLUTE AUTO 5.10 K/mm3 (1.96-9.15); NEUTROPHILS PERCENT AUTO 69 % (41-73); NRBC ABSOLUTE 0.00 K/mm3 (0.00-0.02); NRBC Auto 0.0 /100 WBC (0.0-0.2); Platelet Count 166 K/mm3 (150-400); RDW Coefficient Variation 12.8 % (11.7-14.2); RDW Standard Deviation 46.0 fL (35.1-46.3)
[2025-09-05 06:12] LABS: Alanine Aminotransfer (ALT/SGP 24.0 U/L (12-78); Albumin, Blood 2.4 g/dL (3.4-5.0); Albumin/Globulin Ratio 0.8 (0.8-1.8); Anion Gap 9.0 mmol/L (3-11); Aspartate Aminotrans (AST/SGOT 26.0 U/L (12-37); Bilirubin, Total 0.7 mg/dL (0.1-1.0); Blood Urea Nitrogen 8.0 mg/dL (8-24); CO2, Blood 26.0 mmol/L (21-32); Calcium, Blood 8.5 mg/dL (8.5-10.1); Chloride, Blood 107.0 mmol/L (98-108); Creatinine, Blood 0.77 mg/dL (0.40-1.00); Globulin, Blood 2.9 g/dL (2.2-4.0); Glucose, Blood 78.0 mg/dL (70-99); Potassium, Blood 4.0 mmol/L (3.5-5.5); Sodium, Blood 138.0 mmol/L (136-145); Total Protein, Blood 5.3 g/dL (6.4-8.2)
[2025-09-05 08:27] VITALS: BP 176/74
[2025-09-05 12:09] VITALS: BP 152/63
[2025-09-05] MEDS ORDERED: Vancomycin (Pharmacy Consult) IV SCH (12:55)
[2025-09-05] MEDS ORDERED: CefTRIAXone Sodium 1,000 MG in NS 100 ML IV SCH (14:00)
[2025-09-05 16:09] VITALS: BP 167/91
--- NOTE | 2025-09-05 17:36 | NUR ---
PT A/OX4. PLEASANT AND COOPERATIVE WITH CARE. SBA WITH CANE IN HER ROOM DUE TO IV LINE MANAGEMENT. TAKES MEDS WHOLE WITH WATER. NO EVENTS ON TELE THIS SHIFT. PT IS CURRENTLY IN BED WATCHING TELEVISION. BED IS LOCKED AND IN LOWEST POSITION. CALL LIGHT IS IN REACH. NO ACUTE NEEDS AT THIS TIME.
--- NOTE | 2025-09-05 18:02 | NUR ---
THIS RN CONTACTED DR. PENG TO MAKE HIM AWARE OF PTS BP OF 167/91. NO NEW ORDERS AT THIS TIME.
[2025-09-05 19:11] VITALS: BP 182/66
[2025-09-06] VITALS (10 sets, daily range): BP systolic 151–190; BP diastolic 64–107
--- NOTE | 2025-09-06 03:23 | NUR ---
FOREIGN COLLECTION CLERK SUMMARY A/O X 4. COOPERATIVE WITH CARE. UP WITH ASSIST AND CANE TO BATHROOM NEEDED. ABLE TO REPOSITION SELF IN BED WITHOUT ASSIST. HOB ELEVATED FOR RESP COMFORT. IV FLUIDS AND ANTIBIOTICS INFUSING ORDERED - SEE MAR FOR DETAILS. MED TELE SR IN THE 60'S. VSS. HAS BEEN RESTING QUIETLY WITH FEW INTERRUPTIONS. RESPS EVEN. CALL LIGHT IN REACH, RAILS UP X 2 AND BED IN LOW POSITION FOR SAFETY. BLE REMAIN WRAPPED IN DRESSINGS - NO NOTED DRAINAGE. WILL CONT TO MONITOR.
[2025-09-06] MEDS ORDERED: Metoprolol Tartrate 1 MG/ML 5 ML VIAL IV ONE ×3 (04:35→06:00)
--- NOTE | 2025-09-06 04:59 | NUR ---
PATIENT CONVERTED FROM NSR TO AFIB RVR. PATIENT DENIES CP OR SOB. DR NOTIFIED AND NEW ODERS RECEIVED. 5 LOPRESSOR GIVEN . NO EFFECT AND NOTIFIED AGAIN . NEW ORDER RECEIVED INCLUDING LABS. PATIENT CONTINUES TO DENY SOB OR CP
[2025-09-06 05:21] LABS: BASOPHILS ABSOLUTE AUTO 0.03 K/mm3 (0.00-0.23); BASOPHILS PERCENT AUTO 0 % (0-2); EOSINOPHILS ABSOLUTE AUTO 0.41 K/mm3 (0.00-0.68); EOSINOPHILS PERCENT AUTO 6 % (0-6); Hematocrit 32.4 % (33.0-51.0); Hemoglobin 11.2 g/dL (11.5-16.0); IMMATURE GRAN ABSOLUTE AUTO 0.05 K/mm3 (0.00-0.10); IMMATURE GRAN PERCENT AUTO 1 % (0-1); LYMPHOCYTES ABSOLUTE AUTO 1.35 K/mm3 (0.84-5.20); LYMPHOCYTES PERCENT AUTO 18 % (21-46); MONOCYTES ABSOLUTE AUTO 0.70 K/mm3 (0.16-1.47); MONOCYTES PERCENT AUTO 10 % (4-13); Mean Corpuscular HGB Conc 34.6 g/dL (31.5-36.5); Mean Corpuscular Volume 96 fL (80-100); NEUTROPHILS ABSOLUTE AUTO 4.79 K/mm3 (1.96-9.15); NEUTROPHILS PERCENT AUTO 65 % (41-73); NRBC ABSOLUTE 0.00 K/mm3 (0.00-0.02); NRBC Auto 0.0 /100 WBC (0.0-0.2); Platelet Count 181 K/mm3 (150-400); RDW Coefficient Variation 12.7 % (11.7-14.2); RDW Standard Deviation 45.1 fL (35.1-46.3)
[2025-09-06 05:34] LABS: Anion Gap 5.0 mmol/L (3-11); Blood Urea Nitrogen 5.0 mg/dL (8-24); CO2, Blood 28.0 mmol/L (21-32); Calcium, Blood 9.6 mg/dL (8.5-10.1); Chloride, Blood 108.0 mmol/L (98-108); Creatinine, Blood 0.7 mg/dL (0.40-1.00); Glucose, Blood 79.0 mg/dL (70-99); Magnesium, Blood 1.6 mg/dL (1.6-2.4); Potassium, Blood 3.7 mmol/L (3.5-5.5); Sodium, Blood 137.0 mmol/L (136-145)
--- NOTE | 2025-09-06 06:29 | NUR ---
INTERMITTENT ELEVATED BP AND AFIB - HR IN THE 130'S TO 150'S. NOTIFIED AND HAS ORDERED IV LOPRESSOR X 3, AND PO LOPRESSOR 50 MG. MEDS ADMINISTERED - SEE NOV. REQUESTED CALL BACK AFTER VS TAKEN. 160/90 MANUAL AND HR IN THE 130'S TO 150'S. CALLED, WAITING FOR CALL BACK. CHARGE NURSE NOTIFIED.
--- NOTE | 2025-09-06 06:47 | NUR ---
CALL PLACED TO DR ESME MD NOTIFIED OF HR AND BP. STATED WOULD REVIEW CHART AND PUT IN RDERS. SEE ORDERS
[2025-09-06] MEDS ORDERED: Magnesium Sulf 2 GM/Water 50ML 50 ML IV ONE (07:15)
[2025-09-06] MEDS ORDERED: CefTRIAXone Sodium 1,000 MG in NS 100 ML IV ONE (12:45)
[2025-09-06] MEDS ORDERED: ATOR40TA PO (14:04)
[2025-09-06] MEDS ORDERED: TRAZ50 PO (14:05)
== END 2025-09-06 20:20 | disposition home or self-care (01) | DRG 872 ==
LOC: ER 11:58 → ICUE 17:16 → ERHOLD 17:16 → ICUE 19:40 → MEDS 09-04 16:11
PROVIDERS: Student in an Organized Health Care Education/Training Program; ADMIT Family Medicine
PROC: 3E033XZ Introduction of Vasopressor into Peripheral Vein, Percutaneous Approach (ICD-10-PCS; principal; 2025-09-01)
PROC: 3E03329 Introduction of Other Anti-infective into Peripheral Vein, Percutaneous Approach (ICD-10-PCS; 2025-09-01)
PROC: 3E02340 Introduction of Influenza Vaccine into Muscle, Percutaneous Approach (ICD-10-PCS; 2025-09-01)
DX: A41.9 Sepsis, unspecified organism (principal); L03.115 Cellulitis of right lower limb; L03.116 Cellulitis of left lower limb; M19.90 Unspecified osteoarthritis, unspecified site; E03.9 Hypothyroidism, unspecified; I10 Essential (primary) hypertension; D64.9 Anemia, unspecified; E66.9 Obesity, unspecified; E78.5 Hyperlipidemia, unspecified; I87.2 Venous insufficiency (chronic) (peripheral); I25.10 Atherosclerotic heart disease of native coronary artery without angina pectoris; Z88.1 Allergy status to other antibiotic agents; Z23 Encounter for immunization; Z88.8 Allergy status to other drugs, medicaments and biological substances; Z88.0 Allergy status to penicillin; Z79.899 Other long term (current) drug therapy; Z79.82 Long term (current) use of aspirin; Z79.890 Hormone replacement therapy; Z95.5 Presence of coronary angioplasty implant and graft; I25.2 Old myocardial infarction; Z90.49 Acquired absence of other specified parts of digestive tract; Z98.41 Cataract extraction status, right eye; Z98.42 Cataract extraction status, left eye; Z87.440 Personal history of urinary (tract) infections; Z68.31 Body mass index [BMI] 31.0-31.9, adult; S22.080G Wedge compression fracture of T11-T12 vertebra, subsequent encounter for fracture with delayed healing
CPT/HCPCS: 36415; 80048; 80053; 83605; 83735; 83880; 85025; 85651; 86140; 87040; 93005; 93010; 93926; 94760; 96365; 96375; 97110; 97161; 97165; 97530; 97535; 99285-25; A6590; A9270; J0696; J1650; J1885; J3373; J3475; J7030; J7040; J7050